=== PATIENT | female | born 1950 | race Caucasian/White ===

== ENCOUNTER 2016-02-24 18:16 | Emergency (ER) | payer MEDICARE, MEDICAID ==
[2016-02-24] MEDS ORDERED: IOPAMIDOL 370 (76%) 100 ML VIAL IV ONE (18:17)
[2016-02-24 19:06] LABS: ABSOLUTE NEUTROPHIL COUNT 4.2 K/mm3 (1.8-7.7); BASO # 0.1 K/mm3 (0.0-0.2); BASO % 0.7 % (0.2-1.0); EOS # 0.2 (0.0-0.5); EOS % 2.9 % (0.9-2.9); HEMATOCRIT 42.2 % (37.0-47.0); HEMOGLOBIN 14.6 gm/l (12.0-16.0); IMM NEUT% 0.4 % (0-1); LYMPH # 2.5 (1.0-4.8); LYMPH % 33.7 % (15-45); MEAN CELL VOLUME 87.9 fl (81.0-99.0); MEAN CORPUSCULAR HEMOGLOBIN 30.4 pg (27.0-31.0); MEAN CORPUSCULAR HGB CONC 34.6 g/dl (33.0-37.0); MEAN PLATELET VOLUME 10.5 fl (7.4-10.4); MONO # 0.4 (0.0-0.8); MONO % 5.1 % (4-12); NEUT % 57.2 % (43-75); PLATELET COUNT 223 K/mm3 (130-400); RED CELL DISTRIBUTION WIDTH 11.6 % (11.5-14.5)
[2016-02-24 19:15] LABS: TROPONIN I < 0.01 ng/ml (0.0-0.06)
[2016-02-24 19:18] LABS: CKMB ISOENZYME 2.8 ng/ml (0.6-6.3)
[2016-02-24 19:19] LABS: ALB/GLOB RATIO 1.6 (>1.0); ALBUMIN 4.6 gm/dL (3.5-5.7); CALCIUM 10.6 mg/dL (8.6-10.3)
--- NOTE | 2016-02-24 19:50 | CT ---
ADDENDUM #1 TECHNICAL ADDENDUM: Three-dimensional additional reformatted imaging of the intracranial circulation was performed and reviewed separately. ORIGINAL REPORT INTRACRANIAL CTA WITH CONTRAST HEAD CT WITHOUT CONTRAST HISTORY: Facial tingling. Prior to and following administration of 80 cc Isovue 370 intravenous contrast contiguous axial images acquired from skull base to vertex. COMPARISON:None. BRAIN VOLUME:Grossly unremarkable for patient age. VENTRICULAR SIZE:No gross ventriculomegaly. FOCAL MASS EFFECT:None. ACUTE INTRACRANIAL HEMORRHAGE:None. CALVARIUM:Grossly intact. VISIBLE PARANASAL SINUSES AND MASTOID AIR CELLS:Grossly clear. POSTERIOR CIRCULATION: No high-grade stenosis or occlusion noted. ANTERIOR CIRCULATION: No high-grade stenosis or occlusion noted. POST CONTRAST IMAGING: No dominant focal enhancing lesion identified. SACCULAR ANEURYSM: None identified. Minor infundibulum formation on the left. IMPRESSION: No gross mass effect, ventriculomegaly, or acute intracranial hemorrhage. No high-grade stenosis, occlusion, or dominant saccular aneurysm. No abnormally enhancing lesions. Results were electronically transmitted to the electronic medical record at 02/24/2016 at 1946 hours.
[2016-02-24 19:56] LABS: SPECIFIC GRAVITY 1.015 (1.001-1.030); URINE BILIRUBIN NEGATIVE (NEGATIVE); URINE BLOOD NEGATIVE (NEGATIVE); URINE GLUCOSE (UA) NEGATIVE (NEGATIVE); URINE LEUKOCYTE ESTERASE 1+ (NEGATIVE); URINE NITRITE NEGATIVE (NEGATIVE); URINE PROTEIN NEGATIVE (NEGATIVE); URINE UROBILINOGEN NORMAL (0-1 mg/dl)
--- NOTE | 2016-02-24 19:56 | CT ---
NECK CTA HISTORY: Facial numbness. Following the administration of 80 cc of Isovue 370 contiguous axial images were acquired from the level of the mid orbits to the level of the aortic arch.. Three-dimensional rotational reformatted images and maximum intensity projection imaging was reconstructed on a dedicated workstation and reviewed separately. Diameter stenosis was calculated utilizing NASCET criteria. AORTIC ARCH: Bovine arch configuration, anatomic variant. Normal caliber.. INNOMINATE AND SUBCLAVIAN ARTERIES: No high-grade stenosis or occlusion.. VERTEBRAL ARTERIES: No high-grade stenosis or occlusion.. Dominant on the left. COMMON CAROTID ARTERIES: No high-grade stenosis or occlusion. INTERNAL CAROTID ARTERIES: No high-grade stenosis or occlusion. SOFT TISSUES: Symmetric prominence of Waldeyer's ring with tonsillolith formation. No grossly enlarged lymph nodes. Enlarged heterogeneous appearance of the thyroid gland OSSEOUS STRUCTURES: Findings a moderate disc degeneration at the C5 5 C6 and C6-7 levels. Retention cyst versus polyp formation on the maxillary sinuses. LUNG APICES: Minor apical fibrotic change. No gross airspace disease.. IMPRESSION: 1. No high-grade stenosis or occlusion of the vertebral, common carotid, or internal carotid arteries. 2. Findings a cervical spondylosis and thyromegaly. Results were electronically transmitted to the electronic medical record at 02/24/2016 at 1952 hours.
[2016-02-24 20:05] LABS: URINE APPEARANCE CLEAR; URINE COLOR YELLOW
[2016-02-24 20:06] LABS: URINE BACTERIA RARE; URINE EPITHELIAL CELLS 0-1 /hpf; URINE RBC 0 /hpf
== END 2016-02-24 20:21 | disposition home or self-care (01) ==
LOC: ED 18:16
DX: R20.2 Paresthesia of skin (principal); H61.23 Impacted cerumen, bilateral; I10 Essential (primary) hypertension; E03.9 Hypothyroidism, unspecified; E21.3 Hyperparathyroidism, unspecified
CPT/HCPCS: 85025; 82553; 87086; 80053; 84484; 81001; 70450; 70496; 70498; 99284 ×2; 82962; 93005; Q9967